=== PATIENT | male | born 1945 | race Caucasian/White ===

== ENCOUNTER 2016-10-21 19:14 | Observation (INO) | payer MEDICARE ==
[~2016-10-21] VITALS: Ht 185.4 cm; Wt 113.4 kg
[2016-10-21 22:04] LABS: HEMOGLOBIN 15.2 gm/dl (14.0-17.5); RED BLOOD COUNT 4.89 M/UL (4.20-5.50); WHITE BLOOD COUNT 8.6 K/UL (4.5-11.0)
[2016-10-21 22:28] LABS: BUN/CREATININE RATIO 21 (0-10)
[2016-10-22] MEDS ORDERED: PROSCAR 5 MG TAB5 MG PO (04:10)
[2016-10-22] MEDS ORDERED: SYNTHROID200 MCG PO (04:10)
[2016-10-22] MEDS ORDERED: VITAMIN B-6100 MG PO (04:11)
[2016-10-22] MEDS ORDERED: PHENDIMETRAZIN105 MG PO (04:11)
[2016-10-22] MEDS ORDERED: METFORMIN HCL500 MG PO (04:12)
[2016-10-22] MEDS ORDERED: LASIX20 MG PO (04:12)
[2016-10-22] MEDS ORDERED: OMEPRAZOLE20 MG PO (04:13)
[2016-10-22] MEDS ORDERED: VITAMIN B-1000 MCG/M IM (04:13)
[2016-10-22] MEDS ORDERED: LISINOPRIL5 MG PO (04:14)
[2016-10-22] MEDS ORDERED: MELOXICAM15 MG PO (04:14)
[2016-10-22] MEDS ORDERED: LEVOCETIRIZINE D5 MG PO (04:15)
[2016-10-22] MEDS ORDERED: PROTONIX 40 MG40 M1 PO (19:37)
[2016-10-22] MEDS ORDERED: CARAFATE1 GM/10 ML PO (19:39)
[2016-10-22] MEDS ORDERED: DOXYCYCLINE HY100 MG PO (19:40)
[2016-10-22] MEDS ORDERED: AVELOX400 MG PO (19:40)
== END 2016-10-22 20:04 | disposition home or self-care (01) ==
LOC: ER1 19:14 → ZEROF 10-22 02:30 → MED SURG 4 10-22 02:30
PROVIDERS: Physician Assistant; ADMIT Hospitalist
DX: J32.9 Chronic sinusitis, unspecified (principal); R01.1 Cardiac murmur, unspecified; R10.13 Epigastric pain; J22 Unspecified acute lower respiratory infection; Z79.899 Other long term (current) drug therapy; Z87.19 Personal history of other diseases of the digestive system; Z90.49 Acquired absence of other specified parts of digestive tract
CPT/HCPCS: ECHO; 36415; 70450; 71020; 80053; 80061; 81001; 82550; 82553; 83605; 83690; 83874; 83880; 84484; 85025; 86140; 87040; 87086; 93005; 93306; 94640; 94664; 96374; 96375; 99285; C9113; G0378; J0696